=== PATIENT | female | born 2000 | race Caucasian/White ===

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

== ENCOUNTER 2022-05-20 11:00 | Outpatient (RCR) | payer OTHER | END 2022-05-21 | disposition home or self-care (01) | LOC: WSOH | DX: S60.012D Contusion of left thumb without damage to nail, subsequent encounter (principal); Y99.0 Civilian activity done for income or pay ==